=== PATIENT | female | born 1950 ===

== ENCOUNTER 2025-02-01 08:58 | Inpatient (IN) | payer MEDICAID ==
[~2025-02-01] VITALS: Ht 170.2 cm; Wt 81.6 kg
[2025-02-01] MEDS ORDERED: KETOCONAZOLE 1120 ML T (09:39)
[2025-02-01] MEDS ORDERED: ATARAX,VISTARIL10 MG PO (09:39)
[2025-02-01] MEDS ORDERED: NAMENDA-5 PO (09:41)
[2025-02-01] MEDS ORDERED: EYE ALLERGY ITCH5 ML OD (09:41)
[2025-02-01] MEDS ORDERED: TOPAMAX50 MG PO (09:42)
[2025-02-01] MEDS ORDERED: LIPITOR80 MG PO (09:42)
[2025-02-01] MEDS ORDERED: TYLENOL325 M2 PO (09:43)
[2025-02-01] MEDS ORDERED: DULCOLAX10 M1 R (09:43)
[2025-02-01] MEDS ORDERED: LEXAPRO10 MG PO (09:44)
[2025-02-01] MEDS ORDERED: CARDIZEM120 MG PO (09:44)
[2025-02-01] MEDS ORDERED: MILK OF MA400 MG/5 M PO (09:45)
[2025-02-01] MEDS ORDERED: POTASSIUM CHLO20 ME3 PO (09:49)
[2025-02-01] MEDS ORDERED: ZYRTEC5 M2 PO (09:50)
[2025-02-01] MEDS ORDERED: SINGULAIR10 M1 PO (09:50)
[2025-02-01] MEDS ORDERED: BUSPIRONE10 MG PO (09:52)
[2025-02-01] MEDS ORDERED: ASPIRIN ADULT L81 M1 PO (09:52)
[2025-02-01] MEDS ORDERED: TRAZODONE150 MG PO (09:53)
[2025-02-01] MEDS ORDERED: B-121000 MCG PO (09:54)
[2025-02-01] MEDS ORDERED: B121000 MCG/2 IM (09:54)
[2025-02-01] MEDS ORDERED: COLACE100 MG PO (09:55)
[2025-02-01] MEDS ORDERED: QUESTRAN LIGHT210 GM PO (09:56)
[2025-02-01] MEDS ORDERED: BIOTIN5000 MC1 PO (09:56)
[2025-02-01] MEDS ORDERED: KENALOG 0.1% LO60 ML T (09:57)
[2025-02-01] MEDS ORDERED: PEPCID40 MG PO (09:58)
[2025-02-01] MEDS ORDERED: ZESTRIL2.5 MG PO (09:58)
[2025-02-01] MEDS ORDERED: SYNTHROID,LEV125 MCG PO (09:59)
[2025-02-01] MEDS ORDERED: BENADRYL25 M2 PO (10:00)
[2025-02-01] MEDS ORDERED: HYTONE 2.5% LOT2 OZ T (10:00)
[2025-02-01] MEDS ORDERED: DULOXETINE HCL60 MG PO (10:01)
[2025-02-01] MEDS ORDERED: BUDESONIDE ER9 MG PO (10:02)
[2025-02-01] MEDS ORDERED: MAGNESIUM400 M1 PO (10:02)
[2025-02-01] MEDS ORDERED: CLOBETASOL EMOL50 GM T (10:04)
[2025-02-01] MEDS ORDERED: 'XANAX0.5 MG PO (10:05)
[2025-02-01] MEDS ORDERED: DICYCLOMINE HYD10 MG PO (10:06)
[2025-02-01] MEDS ORDERED: hydrOXYzine hydrochloride 50 MG/ML VIAL IM PRN (10:20)
[2025-02-01] MEDS ORDERED: LORazepam 1 MG TAB PO PRN (10:20)
[2025-02-01] MEDS ORDERED: Water, Sterile 10 ML VIAL IM PRN (10:25)
[2025-02-01] MEDS ORDERED: ACETAMINOPHEN 325 MG TAB PO PRN (12:35)
[2025-02-01] MEDS ORDERED: MG-AL HYDROXIDE/SIMETICONE 30 ML UDC PO PRN (12:35)
[2025-02-01 14:00] VITALS: BP 128/54
[2025-02-01] MEDS ORDERED: diphenhydrAMINE hydrochloride 25 MG CAP PO PRN (14:55)
[2025-02-01] MEDS ORDERED: KETOCONAZOLE T PRN (15:00)
[2025-02-01] MEDS ORDERED: FAMOTIDINE 20 MG TAB PO PRN (15:00)
[2025-02-01] MEDS ORDERED: TRIAMCINOLONE 0.1% T PRN (15:00)
[2025-02-01 20:00] VITALS: BP 135/87
[2025-02-01] MEDS ORDERED: TOPIRAMATE 100 MG TAB PO SCH (21:00)
[2025-02-01] MEDS ORDERED: Mirtazapine 15 MG TAB PO SCH (21:00)
[2025-02-01] MEDS ORDERED: Dicyclomine Hydrochloride 10 MG CAP PO SCH (21:00)
[2025-02-01] MEDS ORDERED: DOCUSATE SODIUM 100 MG CAP PO SCH (21:00)
[2025-02-02 06:15] LABS: BASO # 0.1 10*3/uL (0.0-0.1); BASO % 0.6 % (0.0-1.0); EOS # 0.3 10*3/uL (0.0-0.4); EOS % 2.2 % (1.0-4.0); MEAN CELL VOLUME 94.0 fl (81.0-99.0); MEAN CORPUSCULAR HGB 29.8 pg (27.0-31.0); MEAN PLATELET VOLUME 9.2 fl (9.6-12.3); MONO # 1.0 10*3/uL (0.1-1.0); MONO % 7.1 % (3.0-9.0); NEUT # 7.8 10*3/uL (2.3-7.9); NEUT % 56.1 % (47.0-73.0); NUCLEATED RED BLOOD CELL 0.0 % (0.0-0.0); NUCLEATED RED BLOOD CELL 0.0 10*3/uL (0.0-0.0); PLATELET COUNT AUTOMATED 223 10*3/uL (130-400); RED CELL DISTRI WIDTH 14.2 % (0-14.5)
[2025-02-02 06:29] LABS: VITAMIN D, 25-HYDROXY 38.9 ng/mL (30-100)
[2025-02-02 06:37] LABS: BUN 15 mg/dl (9-23); LDL CHOLESTEROL 112 mg/dL (9-159); SGPT/ALT 31 U/L (5-49)
[2025-02-02 08:00] VITALS: BP 139/80
[2025-02-02] MEDS ORDERED: Acetaminophen/Hydrocodone 5 MG/325 MG TABLET PO PRN (08:00)
[2025-02-02] MEDS ORDERED: HYDROCODONE-AC1 EAC1 PO (08:00)
[2025-02-02 08:30] LABS: BILIRUBIN Negative (Negative); BLOOD Negative (Negative); CLARITY Clear (Clear); COLOR Yellow (Yellow); KETONE Negative (Negative); LEUKO ESTERASE 2+ (Negative); NITRITE Negative (Negative); PH 6.0 (4.5-8.0); SPECIFIC GRAVITY 1.010 (1.001-1.030); UROBILINOGEN 0.2 E.U./dl (0.0-1.0)
[2025-02-02 08:41] LABS: BACTERIA TRACE; WBC 41-50 wbc/hpf (0-5)
[2025-02-02] MEDS ORDERED: POTASSIUM CHLORIDE 20 MEQ TAB PO SCH (09:00)
[2025-02-02] MEDS ORDERED: MAGNESIUM OXIDE 400 MG TAB PO SCH (09:00)
[2025-02-02] MEDS ORDERED: ASPIRIN, CHEWABLE 81 MG TAB PO SCH (09:00)
[2025-02-02] MEDS ORDERED: CYANOCOBALAMIN 500 MCG TAB PO SCH (09:00)
[2025-02-02] MEDS ORDERED: LISINOPRIL 2.5 MG TAB PO SCH (09:00)
[2025-02-02] MEDS ORDERED: Memantine Hydrochloride 5 MG TAB PO SCH (09:00)
[2025-02-02] MEDS ORDERED: CLOBETASOL PROPIONATE 30 GM TUBE T SCH (09:00)
[2025-02-02] MEDS ORDERED: Rivastigmine Tartrate 9.5 MG/24 HR PATCH T SCH (09:00)
[2025-02-02] MEDS ORDERED: LIDOCAINE 4% PATCH T SCH (09:52)
[2025-02-02] MEDS ORDERED: CYANOCOBALAMIN 1,000 MCG/ML VIAL IM SCH (10:00)
[2025-02-02] MEDS ORDERED: ATORVASTATIN CALCIUM 80 MG TAB PO SCH (10:00)
[2025-02-02] MEDS ORDERED: Fosfomycin Tromethamine 3 GM PDS PO ONE (11:05)
[2025-02-02 20:00] VITALS: BP 108/41
[2025-02-02] MEDS ORDERED: ALPRAZolam 0.5 MG TAB PO SCH (21:00)
[2025-02-02] MEDS ORDERED: Mirtazapine 15 MG TAB PO SCH (21:00)
[2025-02-03 08:00] VITALS: BP 125/65
[2025-02-03] MEDS ORDERED: CHOLESTYRAMINE 4 GM PACKET PO SCH (10:00)
[2025-02-03 20:00] VITALS: BP 122/49
[2025-02-04 08:00] VITALS: BP 107/54
[2025-02-04] MEDS ORDERED: ATORVASTATIN CALCIUM 80 MG TAB PO SCH (09:00)
[2025-02-04] MEDS ORDERED: RIVASTIGMINE 13.3 MG/24 HR TDM T SCH (09:00)
[2025-02-04 20:00] VITALS: BP 107/54
[2025-02-05 08:38] VITALS: BP 123/85
[2025-02-05 11:17] LABS: BILIRUBIN Negative (Negative); BLOOD Negative (Negative); CLARITY Clear (Clear); COLOR Yellow (Yellow); KETONE Negative (Negative); LEUKO ESTERASE Negative (Negative); NITRITE Negative (Negative); PH 8.0 (4.5-8.0); SPECIFIC GRAVITY 1.015 (1.001-1.030); UROBILINOGEN 1.0 E.U./dl (0.0-1.0)
[2025-02-05 12:15] LABS: WBC 0-2 wbc/hpf (0-5)
[2025-02-05] MEDS ORDERED: Phenazopyridine Hydrochlorid2 100 MG TAB ONE ×2 (12:41→17:17)
[2025-02-05] MEDS ORDERED: Phenazopyridine Hydrochlorid2 100 MG TAB PO SCH (13:00)
[2025-02-05 20:00] VITALS: BP 107/41
[2025-02-06 08:00] VITALS: BP 115/69
[2025-02-06] MEDS ORDERED: RIVASTIGMINE1 EAC2 T (08:51)
[2025-02-06] MEDS ORDERED: MEMANTINE HCL10 MG PO (08:51)
[2025-02-06] MEDS ORDERED: MIRTAZAPINE15 M2 PO (08:51)
[2025-02-06] MEDS ORDERED: HYDROXYZINE PAM25 M1 PO (08:51)
[2025-02-06] MEDS ORDERED: TOPAMAX100 M1 PO (08:51)
[2025-02-06] MEDS ORDERED: ALPRAZOLAM0.5 M3 PO (08:51)
== END 2025-02-06 14:20 | disposition home or self-care (01) | DRG 751 ==
LOC: 3N 08:58
PROVIDERS: Internal Medicine; ADMIT Psychiatry & Neurology Psychiatry; ATTEND Psychiatry & Neurology Psychiatry
PROC: GZHZZZZ Group Psychotherapy (ICD-10-PCS; principal; 2025-02-01)
DX: F33.2 Major depressive disorder, recurrent severe without psychotic features (principal); R45.851 Suicidal ideations; F41.1 Generalized anxiety disorder; F43.21 Adjustment disorder with depressed mood; K58.0 Irritable bowel syndrome with diarrhea; Z96.653 Presence of artificial knee joint, bilateral; G43.909 Migraine, unspecified, not intractable, without status migrainosus; Z86.73 Personal history of transient ischemic attack (TIA), and cerebral infarction without residual deficits; Z88.0 Allergy status to penicillin; Z88.2 Allergy status to sulfonamides; Z88.8 Allergy status to other drugs, medicaments and biological substances; Z90.710 Acquired absence of both cervix and uterus; Z90.89 Acquired absence of other organs; Z79.899 Other long term (current) drug therapy